=== PATIENT | female | born 2000 | race American Indian/Alaskan Native ===

== ENCOUNTER 2020-07-26 13:07 | Emergency (ER) | payer OTHER ==
[2020-07-26 13:20] VITALS: BP 120/78
--- NOTE | 2020-07-26 14:01 | Emergency Department Report ---
ED Lower Extremity HPI - General Chief Complaint: Extremity Injury, Lower Stated Complaint: LFT FOOT PAIN Time Seen by Provider: 07/26/20 13:46 Source: patient Mode of arrival: Ambulatory Limitations: No Limitations - History of Present Illness Initial Comments: Patient is a 20-year-old female presents emergency room with complaints of a left fourth and fifth toe injury that occurred yesterday. She states that she was playing with her cat and running around chasing her around the house when she hit her toes against the vacuum. She states since then she has had pain and swelling and bruising. She has not been ambulatory secondary to pain. She denies ever injuring in the past. She denies any numbness or weakness. No past medical history. No allergies medications. She is currently on her menstrual cycle. she is currently using crutches which she states she already had. - Related Data Previous Rx's Medication Instructions Recorded Last Taken Type Ibuprofen [Motrin 600 MG tab] 600 mg PO Q8H PRN #14 tablet 07/26/20 Unknown Rx Allergies Allergy/AdvReac Type Severity Reaction Status Date / Time No Known Allergies Allergy Unverified 07/26/20 13:19 ED Review of Systems ROS: Stated complaint: LFT FOOT PAIN Other details as noted in HPI Comment: All other systems reviewed and negative ED Past Medical Hx - Past Medical History Previous Medical History?: No - Surgical History Past Surgical History?: No - Social History Smoking Status: Never Smoker Substance Use Type: None - Medications Home Medications: Home Medications Medication Instructions Recorded Confirmed Last Taken Type Ibuprofen [Motrin 600 MG tab] 600 mg PO Q8H PRN #14 tablet 07/26/20 Unknown Rx ED Physical Exam - General Limitations: No Limitations General appearance: alert, in no apparent distress - Head Head exam: Present: atraumatic, normocephalic - Eye Eye exam: Present: normal appearance - ENT ENT exam: Present: mucous membranes moist - Respiratory Respiratory exam: Absent: respiratory distress, accessory muscle use - Extremities Exam Extremities exam: Present: other (ttp and edema present to the left 4th and left 5th toe, FROM of the LLE, no deformity, neurovascularly intact) - Neurological Exam Neurological exam: Present: alert, oriented X3 - Psychiatric Psychiatric exam: Present: normal affect, normal mood - Skin Skin exam: Present: warm, dry, intact ED Course Vital Signs 12/14/20 13:19 Temperature 98 F Pulse Rate 91 H Respiratory 16 Rate Blood Pressure 120/78 [Right] O2 Sat by Pulse 98 Oximetry ED Lower Extremity MDM - Radiology Data Radiology results: report reviewed, image reviewed Ordering Physician: NOMAN LAFLEUR Date of Service: 07/26/20 Procedure(s): XR foot 3+V LT Accession Number(s): [id number] cc: NOMAN LAFLEUR Fluoro Time In Minutes: LEFT FOOT 3 VIEWS INDICATION: left 4th and 5th toe pain after hitting it. COMPARISON: No relevant prior imaging study available. FINDINGS: There is a mildly displaced transverse fracture through the proximal shaft of the proximal phalanx of the left fifth toe. There is no intra-articular extension. There is minimal lateral subluxation of the middle phalanx of the fourth toe with respect to the proximal phalanx. No fracture is identified. IMPRESSION: 1. Proximal phalanx fifth toe fracture. 2. There is minimal subluxation at the fourth toe PIP joint. This is of uncertain acuity, correlate clinically. Signer Name: Willard Gilliland MD Signed: 07/26/2020 2:58 PM Workstation Name: [id number] Transcribed By: Dictated By: Willard Gilliland MD Electronically Authenticated By: Willard Gilliland MD Signed Date/Time: 07/26/201457 DD/ 56 TD/TT: Ordering Physician: NOMAN LAFLEUR Date of Service: 07/26/20 Procedure(s): XR foot 3+V LT Accession Number(s): [id number] cc: NOMAN LAFLEUR Fluoro Time In Minutes: LEFT FOOT 3 VIEW(S) INDICATION / CLINICAL INFORMATION: s/p manipulation of left 4th toe COMPARISON: Radiograph from the same date. FINDINGS: BONES / JOINT(S): There is redemonstration of a mildly displaced fracture of the fifth toe proximal phalangeal base. Unchanged minimal lateral subluxation of the fourth toe at the proximal interphalangeal joint. No significant arthritis. SOFT TISSUES: No significant abnormality. ADDITIONAL FINDINGS: None. IMPRESSION: Stable radiograph compared to the study from 2 hours earlier. Signer Name: Kellee Ruiz MD Signed: 07/26/2020 4:56 PM Workstation Name: [id number] Transcribed By: SS Dictated By: KELLEE RUIZ Electronically Authenticated By: KELLEE RUIZ Signed Date/Time: 07/26/201655 DD/ 53 TD/TT: - Medical Decision Making Patient is a 20-year-old female presents emergency room with complaints of a left fourth and fifth toe injury that occurred yesterday. She states that she was playing with her cat and running around chasing her around the house when she hit her toes against the vacuum. She states since then she has had pain and swelling and bruising. She has not been ambulatory secondary to pain. She denies ever injuring in the past. She denies any numbness or weakness. No past medical history. No allergies medications. She is currently on her menstrual cycle. she is currently using crutches which she states she already had. vss. on exam:ttp and edema present to the left 4th and left 5th toe, FROM of the LLE, no deformity, neurovascularly intact. XR left foot: 1. Proximal phalanx fifth toe fracture. 2. There is minimal subluxation at the fourth toe PIP joint. This is of uncertain acuity, correlate clinically. Dr. Nam, ER attending advised to digital block toe and attempt to manipulate, there is no dislocation, attempted to place an anatomical location and buck tape, there is still a minimal subluxation, no dislocation, neurovascular intact, strong distal pulses, brisk cap refill. Patient placed in postop orthopedic shoe and already has crutches appropriate for size. Patient given prescription for ibuprofen. Discussed the importance of orthopedic follow-up with patient. Advised patient Please take medication as prescribed. Please do not bear weight on the leg. Please follow- up with orthopedic doctor. it is very important that you follow-up. May use ice for 15 present time, rest, elevation of the leg. Return to emergency room for any new or worsening symptoms. - Differential Diagnosis Strain, sprain, fracture, dislocation, contusion, tendinitis Critical care attestation.: If time is entered above; I have spent that time in minutes in the direct care of this critically ill patient, excluding procedure time. ED Disposition Clinical Impression: Fracture of phalanx of toe Qualifiers: Encounter type: initial encounter Toe: lesser toe Fracture type: closed Phalanx: proximal Fracture alignment: displaced Laterality: left Qualified Code(s): S92.512A - Displaced fracture of proximal phalanx of left lesser toe(s), initial encounter for closed fracture Subluxation of left toe Qualifiers: Encounter type: initial encounter Qualified Code(s): S93.102A - Unspecified subluxation of left toe(s), initial encounter Disposition: TO HOME OR SELFCARE Is pt being admited?: No Does the pt Need Aspirin: No Condition: Stable Instructions: Toe Fracture, [id number] Additional Instructions: Please take medication as prescribed. Please do not bear weight on the leg. Please follow-up with orthopedic doctor. it is very important that you follow- up. May use ice for 15 present time, rest, elevation of the leg. Return to emergency room for any new or worsening symptoms. Prescriptions: Ibuprofen [Motrin 600 MG tab] 600 mg PO Q8H PRN #14 tablet PRN Reason: Pain Referrals: PRIMARY CAREMD [Primary Care Provider] - 2-3 Days SALAZAR WINKLER MD [Staff Physician] - 2-3 Days [facility] [Provider Group] - 2-3 Days Forms: Work/School Release Form(ED) Time of Disposition: 17:32 Print Language: SAMOAN
--- NOTE | 2020-07-26 15:02 | XRay Report ---
LEFT FOOT 3 VIEWS INDICATION: left 4th and 5th toe pain after hitting it. COMPARISON: No relevant prior imaging study available. FINDINGS: There is a mildly displaced transverse fracture through the proximal shaft of the proximal phalanx of the left fifth toe. There is no intra-articular extension. There is minimal lateral subluxation of the middle phalanx of the fourth toe with respect to the prox imal phalanx. No fracture is identified. IMPRESSION: 1. Proximal phalanx fifth toe fracture. 2. There is minimal subluxation at the fourth toe PIP joint. This is of uncertain acuity, correlate c keny. Signer Name: Willard Gilliland MD Signed: 07/26/2020 2:58 PM Workstation Name: [id number]
[2020-07-26] MEDS ORDERED: LIDOCAINE (1%) 10 MG/1 ML VIAL 20 ML MDV INFILTRATI ONE (15:47)
--- NOTE | 2020-07-26 17:01 | XRay Report ---
LEFT FOOT 3 VIEW(S) INDICATION / CLINICAL INFORMATION: s/p manipulation of left 4th toe COMPARISON: Radiograph from the same date. FINDINGS: BONES / JOINT(S): There is redemonstration of a mildly displaced fracture of the fifth toe proximal p halangeal base. Unchanged minimal lateral subluxation of the fourth toe at the proximal interphalange al joint. No significant arthritis. SOFT TISSUES: No significant abnormality. ADDITIONAL FINDINGS: None. IMPRESSION: Stable radiograph compared to the study from 2 hours earlier. Signer Name: Wilfredo Ruiz MD Signed: 07/26/2020 4:56 PM Workstation Name: [id number]
== END 2020-07-26 17:55 | disposition home or self-care (01) ==
LOC: ED 13:07
DX: S92.512A Displaced fracture of proximal phalanx of left lesser toe(s), initial encounter for closed fracture (principal); S93.102A Unspecified subluxation of left toe(s), initial encounter; Z79.1 Long term (current) use of non-steroidal anti-inflammatories (NSAID); X58.XXXA Exposure to other specified factors, initial encounter; Y93.89 Activity, other specified; Y92.89 Other specified places as the place of occurrence of the external cause; Y99.8 Other external cause status
CPT/HCPCS: 99284